=== PATIENT | female | born 1985 | race Caucasian/White ===

== ENCOUNTER 2020-09-03 12:15 | Emergency (ER) | payer BC, MEDICAID, OTHER ==
[~2020-09-03] VITALS: Ht 165.1 cm; Wt 102.0 kg
[2020-09-03 13:58] LABS: CHLORIDE 107 mEq/L (98-107)
[2020-09-03 14:02] LABS: BASOPHILS % 0.5 % (0.0-2.0); EOSINOPHILS % 1.4 % (0.0-5.0); HEMATOCRIT. 40.6 % (36.0-48.0); HEMOGLOBIN. 13.7 g/dL (12.0-16.0); LYMPHOCYTES % 21.6 % (20.0-50.0); MEAN CORPUSCULAR HEMOGLOBIN 29.4 pg (28.0-32.0); MEAN CORPUSCULAR VOLUME 86.9 fL (81.0-99.0); MEAN PLATELET VOLUME 8.5 fl (7.4-10.4); MONOCYTES % 6.3 % (2.0-8.0); NEUTROPHILS % 70.2 % (40.0-76.0); PLATELET 249 x1000/uL (130-400); RED BLOOD CELL COUNT 4.67 mill/uL (4.2-5.4); RED CELL DISTRIBUTION WIDTH 13.6 % (11.6-14.6)
[2020-09-03] MEDS ORDERED: ASPIRIN 81MG TABLET PO ONE (14:15)
[2020-09-03 14:50] LABS: HCG SCREEN NEGATIVE
[2020-09-03 19:14] VITALS: BP 130/75
== END 2020-09-03 19:48 | disposition home or self-care (01) ==
LOC: ER 12:30
DX: R07.89 Other chest pain (principal); R20.0 Anesthesia of skin
CPT/HCPCS: 36415; 71045; 80053; 82962; 83880; 84484; 84703; 85025; 93005; 99285; Z7610